=== PATIENT | female | born 1960 | race Caucasian/White ===

== ENCOUNTER 2016-07-10 16:56 | Inpatient (IN) | payer MEDICARE, OTHER ==
[~2016-07-10] VITALS: Ht 170.2 cm; Wt 91.2 kg
[2016-07-10 17:51] VITALS: BP 137/82
[2016-07-10] MEDS ORDERED: VENL-68 PO (18:02)
[2016-07-10] MEDS ORDERED: LEVO50TA4 PO (18:02)
[2016-07-10] MEDS ORDERED: VITAD1000 PO (18:02)
[2016-07-10] MEDS ORDERED: VENL-67 PO (18:02)
[2016-07-10] MEDS ORDERED: QUET300T2 PO (18:02)
[2016-07-10] MEDS ORDERED: LITH300C3 PO (18:02)
[2016-07-10] MEDS ORDERED: LITH600 PO (18:02)
[2016-07-10] MEDS ORDERED: INFLUENZA VIRUS VACCINE QVS 2016-17 (3YR+)/PF 60 MCG/0.5 ML SYRINGE IM ONE (19:00)
[2016-07-10] MEDS ORDERED: ZOLPIDEM TARTRATE 10 MG TABLET PO PRN (19:15)
[2016-07-10] MEDS: QUEtiapine FUMARATE 300 MG TABLET PO SCH (20:55)
[2016-07-11 00:12] VITALS: BP 111/69
[2016-07-11] MEDS ORDERED: LEVOTHYROXINE SODIUM 50 MCG TABLET PO SCH (06:30)
[2016-07-11 08:38] LABS: BASOPHILS % (AUTO) 0.5 % (0.0-2.0); HEMATOCRIT 33.2 % (36-46); HEMOGLOBIN 10.7 g/dL (12.0-16.0); LYMPHOCYTES # (AUTO) 1.7 K/uL (1.0-4.8); LYMPHOCYTES % (AUTO) 36.4 % (22.0-44.0); MEAN CORPUSCULAR HEMOGLOBIN 28.1 pg (26.0-34.0); MEAN CORPUSCULAR HGB CONC 32.3 G/dL (31.0-37.0); MEAN CORPUSCULAR VOLUME 87 fL (80-100); MONOCYTES # (AUTO) 0.3 K/uL (0.1-1.0); MONOCYTES % (AUTO) 6.6 % (2.0-9.0); NEUTROPHILS # (AUTO) 2.4 K/uL (1.8-7.7); NEUTROPHILS % (AUTO) 51.5 % (40.0-70.0); PLATELET COUNT (AUTO) 200 K/uL (150-450); RED BLOOD CELL COUNT(AUTO) 3.82 MIL/uL (4.00-5.20); RED CELL DISTRIBUTION WIDTH 15.3 % (11.5-14.5); WHITE BLOOD COUNT (AUTO) 4.7 K/uL (4.5-11.0)
[2016-07-11] MEDS: CHOLECALCIFEROL (VIT D3) 1,000 UNITS TABLET PO SCH (08:46)
[2016-07-11 08:56] VITALS: BP 98/66
[2016-07-11 09:35] LABS: ALBUMIN 3.2 g/dL (3.4-5.0); BILIRUBIN,TOTAL 0.3 mg/dL (0.1-1.0); CALCIUM, TOTAL 8.6 mg/dL (8.8-10.5); CHOL/HDL RATIO 3.2 (3.9-5.7); CREATININE 1.2 mg/dL (0.60-1.30); POTASSIUM 4.3 mmol/L (3.5-5.1); THYROID STIMULATING HORMONE 4.23 uIU/mL (0.36-3.74); TOTAL PROTEIN, SERUM 5.8 g/dL (6.4-8.2)
[2016-07-11 16:33] VITALS: BP 125/78
[2016-07-11] MEDS: LITHIUM CARBONATE 600 MG CAPSULE PO SCH (19:11)
[2016-07-11] MEDS: QUEtiapine FUMARATE 300 MG TABLET PO SCH (21:21)
[2016-07-12 00:41] VITALS: BP 111/68
[2016-07-12] MEDS: LEVOTHYROXINE SODIUM 100 MCG TABLET PO SCH (06:32)
[2016-07-12 08:38] VITALS: BP 110/65
[2016-07-12] MEDS: CHOLECALCIFEROL (VIT D3) 1,000 UNITS TABLET PO SCH (09:11)
[2016-07-12] MEDS: LITHIUM CARBONATE 600 MG CAPSULE PO SCH ×2 (09:11→16:41)
[2016-07-12] MEDS: VENLAFAXINE HCL 75 MG ER CAPSULE PO SCH (09:11)
[2016-07-12 09:36] LABS: LITHIUM 0.48 mmol/L (0.60-1.20)
[2016-07-12 09:38] LABS: HEMOGLOBIN A1C 5.3 % (4.5-6.2)
[2016-07-12 10:04] LABS: CHOL/HDL RATIO 3.3 (3.9-5.7); THYROID STIMULATING HORMONE 5.15 uIU/mL (0.36-3.74)
[2016-07-12 10:42] VITALS: BP 112/66
[2016-07-12] MEDS: IBUPROFEN 400 MG TABLET PO PRN (10:42)
[2016-07-12 16:26] VITALS: BP 140/85
[2016-07-12] MEDS: QUEtiapine FUMARATE 300 MG TABLET PO SCH (21:19)
[2016-07-13 00:01] VITALS: BP 105/60
[2016-07-13] MEDS: LEVOTHYROXINE SODIUM 100 MCG TABLET PO SCH (06:50)
[2016-07-13 08:59] VITALS: BP 113/66
[2016-07-13] MEDS: VENLAFAXINE HCL 75 MG ER CAPSULE PO SCH (09:18)
[2016-07-13] MEDS: LITHIUM CARBONATE 600 MG CAPSULE PO SCH ×2 (09:18→17:06)
[2016-07-13] MEDS: CHOLECALCIFEROL (VIT D3) 1,000 UNITS TABLET PO SCH (09:18)
[2016-07-13 10:29] VITALS: BP 116/68
[2016-07-13] MEDS: IBUPROFEN 400 MG TABLET PO PRN ×2 (10:29→19:35)
[2016-07-13] MEDS: ACETAMINOPHEN 325 MG TABLET PO PRN (13:50)
[2016-07-13 16:00] VITALS: BP 130/90
[2016-07-13 19:35] VITALS: BP 127/83
[2016-07-13] MEDS: QUEtiapine FUMARATE 300 MG TABLET PO SCH (21:03)
[2016-07-14 04:52] VITALS: BP 120/83
[2016-07-14] MEDS: LEVOTHYROXINE SODIUM 100 MCG TABLET PO SCH (06:33)
[2016-07-14 07:28] VITALS: BP 114/60
[2016-07-14] MEDS: IBUPROFEN 400 MG TABLET PO PRN ×2 (07:30→16:31)
[2016-07-14] MEDS: LITHIUM CARBONATE 600 MG CAPSULE PO SCH ×2 (08:45→16:29)
[2016-07-14] MEDS: CHOLECALCIFEROL (VIT D3) 1,000 UNITS TABLET PO SCH (08:45)
[2016-07-14] MEDS: VENLAFAXINE HCL 75 MG ER CAPSULE PO SCH (08:45)
[2016-07-14 08:55] VITALS: BP 105/60
[2016-07-14 09:45] VITALS: BP 113/72
[2016-07-14] MEDS: ACETAMINOPHEN 325 MG TABLET PO PRN (09:45)
[2016-07-14 16:26] VITALS: BP 124/78
[2016-07-14] MEDS: QUEtiapine FUMARATE 300 MG TABLET PO SCH (20:59)
[2016-07-15 06:15] VITALS: BP 113/68
[2016-07-15] MEDS: LEVOTHYROXINE SODIUM 100 MCG TABLET PO SCH (06:22)
[2016-07-15 08:23] LABS: BASOPHILS % (AUTO) 0.4 % (0.0-2.0); EOSINOPHILS % (AUTO) 4.7 % (1.0-6.0); HEMATOCRIT 33.2 % (36-46); HEMOGLOBIN 10.9 g/dL (12.0-16.0); LYMPHOCYTES # (AUTO) 1.6 K/uL (1.0-4.8); LYMPHOCYTES % (AUTO) 32.4 % (22.0-44.0); MEAN CORPUSCULAR HEMOGLOBIN 28.3 pg (26.0-34.0); MEAN CORPUSCULAR HGB CONC 32.9 G/dL (31.0-37.0); MEAN CORPUSCULAR VOLUME 86 fL (80-100); MONOCYTES # (AUTO) 0.3 K/uL (0.1-1.0); MONOCYTES % (AUTO) 6.5 % (2.0-9.0); NEUTROPHILS # (AUTO) 2.8 K/uL (1.8-7.7); PLATELET COUNT (AUTO) 208 K/uL (150-450); RED BLOOD CELL COUNT(AUTO) 3.87 MIL/uL (4.00-5.20); RED CELL DISTRIBUTION WIDTH 15.7 % (11.5-14.5)
[2016-07-15 09:04] VITALS: BP 99/61
[2016-07-15 09:21] LABS: ALBUMIN 3.2 g/dL (3.4-5.0); BILIRUBIN,TOTAL 0.3 mg/dL (0.1-1.0); CALCIUM, TOTAL 8.6 mg/dL (8.8-10.5); CREATININE 1.06 mg/dL (0.60-1.30); POTASSIUM 4.1 mmol/L (3.5-5.1); THYROID STIMULATING HORMONE 4.22 uIU/mL (0.36-3.74)
[2016-07-15] MEDS: VENLAFAXINE HCL 75 MG ER CAPSULE PO SCH (09:33)
[2016-07-15] MEDS: BACITRACIN 28.4 GM OINTMENT TP SCH ×2 (09:33→16:05)
[2016-07-15] MEDS: CHOLECALCIFEROL (VIT D3) 1,000 UNITS TABLET PO SCH (09:33)
[2016-07-15] MEDS: LITHIUM CARBONATE 600 MG CAPSULE PO SCH ×2 (09:33→16:06)
[2016-07-15 09:39] LABS: LITHIUM 0.97 mmol/L (0.60-1.20)
[2016-07-15 09:55] VITALS: BP 118/77
[2016-07-15] MEDS: LORazepam 2 MG TABLET PO PRN (09:55)
[2016-07-15 16:00] VITALS: BP 120/71
[2016-07-15] MEDS: IBUPROFEN 400 MG TABLET PO PRN (16:06)
[2016-07-15] MEDS: QUEtiapine FUMARATE 200 MG TABLET PO SCH (20:19)
[2016-07-16 06:17] VITALS: BP 101/64
[2016-07-16] MEDS: LEVOTHYROXINE SODIUM 100 MCG TABLET PO SCH (06:40)
[2016-07-16 08:30] VITALS: BP 109/66
[2016-07-16] MEDS: LITHIUM CARBONATE 600 MG CAPSULE PO SCH ×2 (08:47→17:01)
[2016-07-16] MEDS: VENLAFAXINE HCL 75 MG ER CAPSULE PO SCH (08:47)
[2016-07-16] MEDS: CHOLECALCIFEROL (VIT D3) 1,000 UNITS TABLET PO SCH (08:47)
[2016-07-16] MEDS: IBUPROFEN 400 MG TABLET PO PRN ×2 (08:47→20:56)
[2016-07-16] MEDS: LORazepam 2 MG TABLET PO PRN (08:50)
[2016-07-16] MEDS: BACITRACIN 28.4 GM OINTMENT TP SCH ×2 (10:06→17:01)
[2016-07-16 16:09] VITALS: BP 128/90
[2016-07-16] MEDS: QUEtiapine FUMARATE 200 MG TABLET PO SCH (20:56)
[2016-07-17] MEDS ORDERED: LITH600 PO (03:32)
[2016-07-17] MEDS ORDERED: VENL-67 PO (03:32)
[2016-07-17] MEDS ORDERED: QUET200T PO (03:32)
[2016-07-17] MEDS: LEVOTHYROXINE SODIUM 100 MCG TABLET PO SCH (06:48)
[2016-07-17 06:49] VITALS: BP 95/60
[2016-07-17] MEDS ORDERED: LEVO100 PO (08:24)
[2016-07-17 08:45] VITALS: BP 109/64
[2016-07-17] MEDS: LITHIUM CARBONATE 600 MG CAPSULE PO SCH ×2 (08:49→16:19)
[2016-07-17] MEDS: VENLAFAXINE HCL 75 MG ER CAPSULE PO SCH (08:49)
[2016-07-17] MEDS: CHOLECALCIFEROL (VIT D3) 1,000 UNITS TABLET PO SCH (08:49)
[2016-07-17] MEDS: BACITRACIN 28.4 GM OINTMENT TP SCH ×2 (08:50→16:20)
[2016-07-17] MEDS: LORazepam 2 MG TABLET PO PRN (13:55)
[2016-07-17 16:32] VITALS: BP 114/77
== END 2016-07-17 16:40 | disposition home or self-care (01) | DRG 885 ==
LOC: EDSTATUS 19:13 → B2S 19:24
PROVIDERS: ADMIT Psychiatry & Neurology Psychiatry; ATTEND Psychiatry & Neurology Psychiatry
DX: F25.0 Schizoaffective disorder, bipolar type (principal); F33.2 Major depressive disorder, recurrent severe without psychotic features; R45.851 Suicidal ideations; E78.5 Hyperlipidemia, unspecified; E55.9 Vitamin D deficiency, unspecified; E03.9 Hypothyroidism, unspecified; D64.9 Anemia, unspecified; F99 Mental disorder, not otherwise specified; I95.9 Hypotension, unspecified; F60.3 Borderline personality disorder; Z73.1 Type A behavior pattern; Z79.899 Other long term (current) drug therapy; Z28.21 Immunization not carried out because of patient refusal; Z81.8 Family history of other mental and behavioral disorders
CPT/HCPCS: 83036; 84439; 84443